=== PATIENT | male | born 1980 | race Caucasian/White ===

== ENCOUNTER 2018-10-29 00:37 | Emergency (ER) | payer OTHER ==
[2018-10-29] MEDS ORDERED: ASPIRIN 81 MG TABLET, CHEWABLE PO ONE (01:46)
--- NOTE | 2018-10-29 01:49 | ER Document Report ---
ED Medical Screen (RME) - General Chief Complaint: Chest Pain Stated Complaint: CHEST PAIN Time Seen by Provider: 10/29/18 01:46 Mode of Arrival: Ambulatory Information source: Patient Notes: 38-year-old male presented to ED for complaint of heart palpitations. He states he was sitting at home getting ready to go to bed when all of a sudden he can feel his heart pounding in his chest. He states it felt like it was going very fast. His states she took his blood pressure and pulse and his blood pressure was 150/107 and his pulse was fluctuating between 97 and 105. He states he has had episodes of this in the past so he quit dipping and stopped all energy drinks about a month ago. He states he has a history of migraines and pre-hypertension and is on 100% disability from the . Patient is alert oriented respirations regular and unlabored speaking in full sentences walks with a cane. I have greeted and performed a rapid initial assessment of this patient. A comp rehensive ED assessment and evaluation of the patient, analysis of test results and completion of medical decision making process will be conducted by an additional ED providers. Physical Exam - Vital signs Vitals: Temp Pulse Resp BP Pulse Ox 98.3 F 91 17 180/107 H 100 10/29/18 00:42 10/29/18 00:42 10/29/18 00:42 10/29/18 00:42 10/29/18 00:42 Course - Vital Signs Vital signs: Temp Pulse Resp BP Pulse Ox 98.3 F 91 17 180/107 H 100 10/29/18 00:42 10/29/18 00:42 10/29/18 00:42 10/29/18 00:42 10/29/18 00:42
[2018-10-29 02:18] LABS: ABSOLUTE BASOPHILS # (AUTO) 0.1 10^3/uL (0.0-0.2); ABSOLUTE EOSINOPHILS # (AUTO) 0.1 10^3/uL (0.0-0.6); ABSOLUTE LYMPHOCYTES (AUTO) 2.7 10^3/uL (0.5-4.7); ABSOLUTE NEUT (AUTO) 6.4 10^3/uL (1.7-8.2); BASOPHILS % (AUTO) 0.8 % (0-2); EOSINOPHILS % (AUTO) 0.9 % (0-6); HEMATOCRIT 44.6 % (37.9-51.0); HEMOGLOBIN 15.1 g/dL (13.5-17.0); LYMPHOCYTES % (AUTO) 26.4 % (13-45); MEAN CORPUSCULAR HEMOGLOBIN 29.1 pg (27.0-33.4); MEAN CORPUSCULAR HGB CONC 33.8 g/dL (32.0-36.0); MEAN CORPUSCULAR VOLUME 86 fl (80-97); MONOCYTES % (AUTO) 9.8 % (3-13); PLATELET COUNT 328 10^3/uL (150-450); RED BLOOD COUNT 5.17 10^6/uL (4.35-5.55); RED CELL DISTRIBUTION WIDTH 12.8 % (11.5-14.0); SEGMENTED NEUTROPHILS % (AUTO) 62.1 % (42-78); TOTAL CELLS COUNTED % (AUTO) 100 %; WHITE BLOOD COUNT 10.3 10^3/uL (4.0-10.5)
[2018-10-29 02:24] LABS: PROTHROMBIN TIME 13.2 SEC (11.4-15.4)
[2018-10-29 02:25] LABS: PARTIAL THROMBOPLASTIN TIME 33.9 SEC (23.5-35.8)
[2018-10-29 02:28] LABS: APPEARANCE,URINE CLEAR; BILIRUBIN,URINE NEGATIVE (NEGATIVE); COLOR,URINE STRAW; GLUCOSE, URINE NEGATIVE (NEGATIVE); KETONES,URINE NEGATIVE (NEGATIVE); LEUKOCYTE ESTERASE,URINE NEGATIVE (NEGATIVE); NITRITE,URINE NEGATIVE (NEGATIVE); PROTEIN,URINE NEGATIVE (NEGATIVE); URINE SPECIFIC GRAVITY 1.008; UROBILINOGEN,URINE NEGATIVE mg/dL (<2.0)
[2018-10-29 02:38] LABS: ALBUMIN 4.4 g/dL (3.5-5.0); ALKALINE PHOSPHATASE 104 U/L (38-126); ANION GAP 11 (5-19); ASPARTATE AMINO TRANSFERASE 31 U/L (17-59); BILIRUBIN,DIRECT 0.3 mg/dL (0.0-0.4); BILIRUBIN,TOTAL 0.4 mg/dL (0.2-1.3); BLOOD UREA NITROGEN 14 mg/dL (7-20); CARBON DIOXIDE 24 mmol/L (22-30); CHLORIDE 106 mmol/L (98-107); CREATINE KINASE 184 U/L (55-170); GLUCOSE 98 mg/dL (75-110); POTASSIUM 4.1 mmol/L (3.6-5.0); TOTAL PROTEIN 7.9 g/dL (6.3-8.2)
--- NOTE | 2018-10-29 02:38 | RADIOLOGY REPORT (SQ) ---
EXAM DESCRIPTION: XR CHEST 2 VIEWS COMPLETED DATE/TME: 10/29/2018 01:46 CLINICAL HISTORY: 38 years, Male, chest palpitations COMPARISON: None. NUMBER OF VIEWS: TECHNIQUE: LIMITATIONS: None. FINDINGS: No evidence of pulmonary infiltrate or pleural effusion. The heart and mediastinum are unremarkable. Pulmonary vascularity appears normal. IMPRESSION: No acute finding. copyright 2010 [employer]- All Rights Reserved
[2018-10-29 02:47] LABS: URINE AMPHETAMINES SCREEN NEGATIVE; URINE BARBITURATES SCREEN NEGATIVE; URINE BENZODIAZEPINES SCREEN NEGATIVE; URINE COCAINE SCREEN NEGATIVE; URINE MARIJUANA (THC) SCREEN NEGATIVE; URINE METHADONE SCREEN NEGATIVE; URINE PHENCYCLIDINE SCREEN NEGATIVE
[2018-10-29 03:03] LABS: CREATINE KINASE MB 0.75 ng/mL (<4.55)
[2018-10-29 03:05] LABS: TROPONIN I < 0.012 ng/mL
[2018-10-29] MEDS ORDERED: NORMAL SALINE 1000 ML 1,000 ML IV ONE (04:07)
--- NOTE | 2018-10-29 06:05 | ER Document Report ---
ED General - General Chief Complaint: Chest Pain Stated Complaint: CHEST PAIN Time Seen by Provider: 10/29/18 01:46 Mode of Arrival: Ambulatory Notes: RME NOTE: 38-year-old male presented to ED for complaint of heart palpitations. He states he was sitting at home getting ready to go to bed when all of a sudden he can feel his heart pounding in his chest. He states it felt like it was going very fast. His states she took his blood pressure and pulse and his blood pressure was 150/107 and his pulse was fluctuating between 97 and 105. He states he has had episodes of this in the past so he quit dipping and stopped all energy drinks about a month ago. He states he has a history of migraines and pre-hypertension and is on 100% disability from the . Patient is alert oriented respirations regular and unlabored speaking in full sentences walks with a cane. My HPI: Upon my evaluation of the patient he is denying any chest pain, pressure, palpitations, heaviness. Patient's denying any respiratory distress, diaphoresis upon episode. Patient's denying any history of blood clots in his legs or lungs. Patient also denying any history of smoking. - Related Data Allergies/Adverse Reactions: No Known Allergies Allergy (Verified 10/29/18 01:52) Past Medical History - General Information source: Patient - Social History Smoking Status: Never Smoker Chew tobacco use (# tins/day): Yes - just quit Frequency of alcohol use: None Drug Abuse: None Family History: Reviewed & Not Pertinent Patient has suicidal ideation: No Patient has homicidal ideation: No Review of Systems - Review of Systems Constitutional: denies: Fever - His last CBC EENT: No symptoms reported Cardiovascular: See HPI Respiratory: See HPI Gastrointestinal: No symptoms reported Genitourinary: No symptoms reported - First name Valente Male Genitourinary: No symptoms reported Musculoskeletal: No symptoms reported Skin: No symptoms reported Hematologic/Lymphatic: No symptoms reported - Date of 218 Neurological/Psychological: No symptoms reported Physical Exam - Vital signs Vitals: Temp Pulse Resp BP Pulse Ox 98.3 F 91 17 180/107 H 100 10/29/18 00:42 10/29/18 00:42 10/29/18 00:42 10/29/18 00:42 10/29/18 00:42 - Notes Notes: GENERAL: Alert, interacts well. No acute distress. HEAD: Normocephalic, atraumatic. EYES: Pupils equal, round, and reactive to light. Extraocular movements intact. ENT: Oral mucosa moist, tongue midline. NECK: Full range of motion. Supple. Trachea midline. LUNGS: Clear to auscultation bilaterally, no wheezes, rales, or rhonchi. No res piratory distress. HEART: Regular rate and rhythm. No murmur ABDOMEN: Soft, non-tender. Non-distended. Bowel sounds present in all 4 quadrants. EXTREMITIES: Moves all 4 extremities spontaneously. No edema, normal radial and dorsalis pedis pulses bilaterally. No cyanosis. BACK: no cervical, thoracic, lumbar midline tenderness. No saddle anesthesia, normal distal neurovascular exam. NEUROLOGICAL: Alert and oriented x3. Normal speech. cranial nerves II through XII grossly intact PSYCH: Normal affect, normal mood. SKIN: Warm, dry, normal turgor. No rashes or lesions noted. Course - Re-evaluation Re-evalutation: 10/29/18 06:02 Laboratory 10/29/18 10/29/18 10/29/18 02:00 02:00 02:00 WBC 10.3 RBC 5.17 Hgb 15.1 Hct 44.6 MCV 86 MCH 29.1 MCHC 33.8 RDW 12.8 Plt Count 328 Lymph % (Auto) 26.4 Butts % (Auto) 9.8 Eos % (Auto) 0.9 Baso % (Auto) 0.8 Absolute Neuts (auto) 6.4 Absolute Lymphs (auto) 2.7 Absolute Monos (auto) 1.0 Absolute Eos (auto) 0.1 Absolute Basos (auto) 0.1 Seg Neutrophils % 62.1 PT 13.2 INR 1.00 APTT 33.9 Sodium 140.9 Potassium 4.1 Chloride 106 Carbon Dioxide 24 Anion Gap 11 BUN 14 Creatinine 0.84 Est GFR ( Amer) > 60 Est GFR (MDRD) Non-Af > 60 Glucose 98 Calcium 9.0 Total Bilirubin 0.4 Direct Bilirubin 0.3 Neonat Total Bilirubin Not Reportable Neonat Direct Bilirubin Not Reportable Neonat Indirect Bili Not Reportable AST 31 ALT 36 Alkaline Phosphatase 104 Creatine Kinase 184 H CK-MB (CK-2) Troponin I Total Protein 7.9 Albumin 4.4 Urine Color Urine Appearance Urine pH Ur Specific Grandin Urine Protein Urine Glucose (UA) Urine Ketones Urine Blood Urine Nitrite Urine Bilirubin Urine Urobilinogen Ur Leukocyte Esterase Urine WBC (Auto) Urine RBC (Auto) Urine Mucus (Auto) Urine Ascorbic Acid Urine Opiates Screen Urine Methadone Screen Ur Barbiturates Screen Ur Phencyclidine Scrn Ur Amphetamines Screen U Benzodiazepines Scrn Urine Cocaine Screen U Marijuana (THC) Screen 10/29/18 10/29/18 10/29/18 02:00 02:10 02:10 WBC RBC Hgb Hct MCV MCH MCHC RDW Plt Count Lymph % (Auto) Butts % (Auto) Eos % (Auto) Baso % (Auto) Absolute Neuts (auto) Absolute Lymphs (auto) Absolute Monos (auto) Absolute Eos (auto) Absolute Basos (auto) Seg Neutrophils % PT INR APTT Sodium Potassium Chloride Carbon Dioxide Anion Gap BUN Creatinine Est GFR ( Amer) Est GFR (MDRD) Non-Af Glucose Calcium Total Bilirubin Direct Bilirubin Neonat Total Bilirubin Neonat Direct Bilirubin Neonat Indirect Bili AST ALT Alkaline Phosphatase Creatine Kinase CK-MB (CK-2) 0.75 Troponin I < 0.012 Total Protein Albumin Urine Color STRAW Urine Appearance CLEAR Urine pH 7.0 Ur Specific Grandin 1.008 Urine Protein NEGATIVE Urine Glucose (UA) NEGATIVE Urine Ketones NEGATIVE Urine Blood NEGATIVE Urine Nitrite NEGATIVE Urine Bilirubin NEGATIVE Urine Urobilinogen NEGATIVE Ur Leukocyte Esterase NEGATIVE Urine WBC (Auto) 1 Urine RBC (Auto) 0 Urine Mucus (Auto) RARE Urine Ascorbic Acid NEGATIVE Urine Opiates Screen NEGATIVE Urine Methadone Screen NEGATIVE Ur Barbiturates Screen NEGATIVE Ur Phencyclidine Scrn NEGATIVE Ur Amphetamines Screen NEGATIVE U Benzodiazepines Scrn NEGATIVE Urine Cocaine Screen NEGATIVE U Marijuana (THC) Screen NEGATIVE 10/29/18 04:42 WBC RBC Hgb Hct MCV MCH MCHC RDW Plt Count Lymph % (Auto) Butts % (Auto) Eos % (Auto) Baso % (Auto) Absolute Neuts (auto) Absolute Lymphs (auto) Absolute Monos (auto) Absolute Eos (auto) Absolute Basos (auto) Seg Neutrophils % PT INR APTT Sodium Potassium Chloride Carbon Dioxide Anion Gap BUN Creatinine Est GFR ( Amer) Est GFR (MDRD) Non-Af Glucose Calcium Total Bilirubin Direct Bilirubin Neonat Total Bilirubin Neonat Direct Bilirubin Neonat Indirect Bili AST ALT Alkaline Phosphatase Creatine Kinase CK-MB (CK-2) Troponin I < 0.012 Total Protein Albumin Urine Color Urine Appearance Urine pH Ur Specific Grandin Urine Protein Urine Glucose (UA) Urine Ketones Urine Blood Urine Nitrite Urine Bilirubin Urine Urobilinogen Ur Leukocyte Esterase Urine WBC (Auto) Urine RBC (Auto) Urine Mucus (Auto) Urine Ascorbic Acid Urine Opiates Screen Urine Methadone Screen Ur Barbiturates Screen Ur Phencyclidine Scrn Ur Amphetamines Screen U Benzodiazepines Scrn Urine Cocaine Screen U Marijuana (THC) Screen Chest X-Ray 10/29/18 01:46 IMPRESSION: No acute finding. copyright 2010 [employer]- All Rights Reserved EKG shows a sinus rhythm rate of 90, QTc 460, no ST segment elevations or depressions noted. Patient's blood pressure was noted to be significantly elevated upon arrival to the emergency department repeat blood pressure has come down to 146/97. Patient's heart score is noted to be 1 based on risk factors. Patient has had negative a delta troponins in the emergency department. Discussed close follow-up with cardiology. Continues to deny and CP, heaviness, racing heart while in ED. At this time will discharge with return precautions and follow-up recommendations. Verbal discharge instructions given a the bedside and opport unity for questions given. Medication warnings reviewed. Patient is in agreement with this plan and has verbalized understanding of return precautions and the need for primary care follow-up in the next 24-72 hours. - Vital Signs Vital signs: Temp Pulse Resp BP Pulse Ox 98.3 F 91 17 180/107 H 100 10/29/18 00:42 10/29/18 00:42 10/29/18 00:42 10/29/18 00:42 10/29/18 00:42 - Laboratory Result Diagrams: 10/29/18 02:00 10/29/18 02:00 Laboratory results interpreted by me: 10/29/18 02:00 Creatine Kinase 184 H Discharge - Discharge Clinical Impression: Heart palpitations Condition: Stable Disposition: HOME, SELF-CARE Instructions: Chest Pain of Unclear Cause ([facility]) Additional Instructions: As we discussed you have been seen and treated in the emergency department for your heart palpitations. Your work-up reveals no signs of obvious abnormalities. Please follow-up with cardiology, phone numbers to be provided in this packet. Please also return to the emergency department should you have any further concerns. Referrals: LUIZ HURLEY MD [EMER[facility]] - Follow up as needed
[2018-10-29 06:26] VITALS: BP 144/89
--- NOTE | 2018-10-29 06:58 | EKG REPORT ---
SEVERITY:- NORMAL ECG - SINUS RHYTHM : Confirmed by: Kenyon Hewitt MD 29-Oct-2018 06:57:31
== END 2018-10-29 06:26 | disposition home or self-care (01) ==
LOC: ER 00:37
DX: R07.9 Chest pain, unspecified (principal)
CPT/HCPCS: 93005; 99285; 96360; 36415; 82553; 82550; 85025; 85610; 85730; 80053; 81001; 84484; 80307; 71046; 93010; J7030

== ENCOUNTER 2018-12-02 21:34 | Emergency (ER) | payer OTHER ==
[2018-12-02] MEDS ORDERED: ASPIRIN 81 MG TABLET, CHEWABLE PO ONE (22:20)
--- NOTE | 2018-12-02 22:20 | ER Document Report ---
ED Medical Screen (RME) - General Chief Complaint: Chest Pain > 30 Stated Complaint: CHEST PAIN Time Seen by Provider: 12/02/18 22:16 Mode of Arrival: Ambulatory Information source: Patient Notes: 38-year-old male presented to ED for complaint of chest pain for the last 2 hours. Pain is dull and achy he states the pain is radiating to both sides of his chest. He states he has had some shortness of breath no cough or anything like that. He states last time he came in for chest pain that did not find anything that he is having pain again and has come in to be evaluated. He does have a history of high blood pressure. He states he has been the primary care since his last visit and was started on lisinopril 12.5 mg. Today his blood pressure is 149/83. He states he does not smoke drink or use any illicit drugs. He is alert oriented respirations regular and unlabored. I have greeted and performed a rapid initial assessment of this patient. A comprehensive ED assessment and evaluation of the patient, analysis of test results and completion of medical decision making process will be conducted by an additional ED providers. - Related Data Allergies/Adverse Reactions: No Known Allergies Allergy (Verified 10/29/18 01:52) Physical Exam - Vital signs Vitals: Temp Pulse Resp BP Pulse Ox 97.7 F 97 18 149/83 H 96 12/02/18 21:44 12/02/18 21:44 12/02/18 21:44 12/02/18 21:44 12/02/18 21:44 Course - Vital Signs Vital signs: Temp Pulse Resp BP Pulse Ox 97.7 F 97 18 149/83 H 96 12/02/18 21:44 12/02/18 21:44 12/02/18 21:44 12/02/18 21:44 12/02/18 21:44
--- NOTE | 2018-12-02 23:12 | RADIOLOGY REPORT (SQ) ---
EXAM DESCRIPTION: XR CHEST 2 VIEWS COMPLETED DATE/TME: 12/02/2018 22:21 CLINICAL HISTORY: 38 years, Male, chest pain short of breath COMPARISON: 10/29/2018 NUMBER OF VIEWS: Two TECHNIQUE: Two views of the chest LIMITATIONS: None. FINDINGS: The lungs are clear. The heart is normal in size. There is no pneumothorax or pleural effusion. The bones are unremarkable. IMPRESSION: No acute cardiopulmonary abnormality copyright 2010 [employer]- All Rights Reserved
[2018-12-02 23:38] LABS: ABSOLUTE BASOPHILS # (AUTO) 0.1 10^3/uL (0.0-0.2); ABSOLUTE EOSINOPHILS # (AUTO) 0.1 10^3/uL (0.0-0.6); ABSOLUTE LYMPHOCYTES (AUTO) 3.1 10^3/uL (0.5-4.7); ABSOLUTE MONOCYTES (AUTO) 1.1 10^3/uL (0.1-1.4); ABSOLUTE NEUT (AUTO) 8.7 10^3/uL (1.7-8.2); BASOPHILS % (AUTO) 0.8 % (0-2); EOSINOPHILS % (AUTO) 0.4 % (0-6); HEMOGLOBIN 15.5 g/dL (13.5-17.0); LYMPHOCYTES % (AUTO) 23.9 % (13-45); MEAN CORPUSCULAR HEMOGLOBIN 29.5 pg (27.0-33.4); MEAN CORPUSCULAR HGB CONC 33.6 g/dL (32.0-36.0); MEAN CORPUSCULAR VOLUME 88 fl (80-97); MONOCYTES % (AUTO) 8.5 % (3-13); PLATELET COUNT 355 10^3/uL (150-450); RED BLOOD COUNT 5.24 10^6/uL (4.35-5.55); SEGMENTED NEUTROPHILS % (AUTO) 66.4 % (42-78); TOTAL CELLS COUNTED % (AUTO) 100 %; WHITE BLOOD COUNT 13.1 10^3/uL (4.0-10.5)
[2018-12-02 23:47] LABS: INTERNATIONAL RATION (INR) 1.05; PROTHROMBIN TIME 13.7 SEC (11.4-15.4)
[2018-12-02 23:54] LABS: ALBUMIN 4.5 g/dL (3.5-5.0); ALKALINE PHOSPHATASE 82 U/L (38-126); ANION GAP 10 (5-19); ASPARTATE AMINO TRANSFERASE 29 U/L (17-59); BILIRUBIN,DIRECT 0.3 mg/dL (0.0-0.4); BILIRUBIN,TOTAL 0.5 mg/dL (0.2-1.3); BLOOD UREA NITROGEN 10 mg/dL (7-20); CALCIUM 9.2 mg/dL (8.4-10.2); CARBON DIOXIDE 24 mmol/L (22-30); CHLORIDE 102 mmol/L (98-107); CREATINE KINASE 118 U/L (55-170); GLUCOSE 120 mg/dL (75-110); POTASSIUM 4.2 mmol/L (3.6-5.0)
[2018-12-03 00:03] LABS: CREATINE KINASE MB 0.53 ng/mL (<4.55)
[2018-12-03 00:12] LABS: NT PRO BNP < 11 pg/mL (<125); TROPONIN I < 0.012 ng/mL
[2018-12-03] MEDS ORDERED: LORAZEPAM 1 MG TABLET PO ONE (00:25)
--- NOTE | 2018-12-03 00:44 | ER Document Report ---
ED General - General Chief Complaint: Chest Pain > 30 Stated Complaint: CHEST PAIN Time Seen by Provider: 12/02/18 22:16 Mode of Arrival: Ambulatory TRAVEL OUTSIDE OF THE [place] IN LAST 30 DAYS: No - HPI Notes: This is a 38-year-old gentleman who presents today with a complaint of chest pain that started about 3 hours prior to ED presentation. Patient describes midsternal chest tightness which goes to both sides of his chest wall. Patient states it makes him feel anxious.Symptoms include palpitations and dyspnea. Patient notes that he has had multiple episodes of these recently and is occurring more frequently. He has upcoming cardiology appointment. Patient states that he stopped drinking caffeine because of the palpitations. He denies any recent travel. He denies any calf pain. He admits to being stressed out a lot and wonders if this is all related to stress. Describes the symptoms as moderate. - Related Data Allergies/Adverse Reactions: No Known Allergies Allergy (Verified 10/29/18 01:52) Past Medical History - General Information source: Patient - Social History Smoking Status: Never Smoker Frequency of alcohol use: None Drug Abuse: None Family History: Reviewed & Not Pertinent Patient has suicidal ideation: No Patient has homicidal ideation: No Review of Systems - Review of Systems Cardiovascular: Chest pain, Palpitations, Heart racing. denies: Syncope Gastrointestinal: denies: Abdominal pain, Diarrhea, Nausea, Vomiting Neurological/Psychological: Anxiety -: Yes All other systems reviewed and negative Physical Exam - Vital signs Vitals: Temp Pulse Resp BP Pulse Ox 97.7 F 97 18 149/83 H 96 12/02/18 21:44 12/02/18 21:44 12/02/18 21:44 12/02/18 21:44 12/02/18 21:44 - General General appearance: Appears well, Alert - HEENT Head: Normocephalic, Atraumatic Eyes: Normal Pupils: PERRL - Respiratory Respiratory status: No respiratory distress Chest status: Nontender Breath sounds: Normal Chest palpation: Normal - Cardiovascular Rhythm: Regular Heart sounds: Normal auscultation Murmur: No - Abdominal Inspection: Normal Distension: No distension Bowel sounds: Normal Tenderness: Nontender Organomegaly: No organomegaly - Extremities General upper extremity: Normal inspection, Nontender, Normal color, Normal ROM, Normal temperature General lower extremity: Normal inspection, Nontender, Normal color, Normal ROM, Normal temperature, Normal weight bearing. No: Hue's sign - Psychological Associated symptoms: Normal affect, Anxious - Skin Skin Temperature: Warm Skin Moisture: Dry Skin Color: Normal Course - Re-evaluation Re-evalutation: 12/03/18 00:53 Differential diagnosis includes anxiety versus atypical chest pain versus electrolyte abnormality. Doubt acute coronary syndrome and is 38-year-old patient with atypical chest pain. 12/03/18 00:57 EKG shows normal sinus rhythm at 99 bpm. Normal axis. Normal intervals. No acute injury pattern. 12/03/18 03:24 Patient reevaluated. Patient is doing well. Repeat troponin is negative. He would like something for anxiety. He is stable for discharge. Follow-up discussed. - Vital Signs Vital signs: Temp Pulse Resp BP Pulse Ox 97.7 F 88 26 H 125/65 98 12/02/18 21:44 12/03/18 00:35 12/03/18 02:01 12/03/18 02:01 12/03/18 02:01 - Laboratory Result Diagrams: 12/02/18 23:23 12/02/18 23:23 Laboratory results interpreted by me: 12/02/18 12/02/18 23:23 23:23 WBC 13.1 H Absolute Neuts (auto) 8.7 H Sodium 136.2 L Glucose 120 H Discharge - Discharge Clinical Impression: Atypical chest pain, Anxiety Condition: Good Disposition: HOME, SELF-CARE Instructions: Chest Pain of Unclear Cause ([facility]), Anxiety ([facility]) Prescriptions: Hydroxyzine Pamoate [Vistaril 25 mg Capsule] 25 mg PO DAILY PRN #30 capsule PRN Reason: Anxiety Referrals: [facility] [NO LOCAL MD] - Follow up as needed
[2018-12-03 04:12] VITALS: BP 120/61
--- NOTE | 2018-12-03 13:38 | EKG REPORT ---
SEVERITY:- NORMAL ECG - SINUS RHYTHM : Confirmed by: Laya Mesa MD 03-Dec-2018 13:38:11
== END 2018-12-03 04:04 | disposition home or self-care (01) ==
LOC: ER 21:34
DX: R07.89 Other chest pain (principal); F41.9 Anxiety disorder, unspecified
CPT/HCPCS: 36415; 71046; 80053; 82550; 82553; 83735; 83880; 84443; 84484; 85025; 85610; 85730; 93005; 93010; 99285